=== PATIENT | female | born 1985 | race American Indian/Alaskan Native ===

== ENCOUNTER 2016-11-01 11:55 | Emergency (ER) | payer OTHER ==
[2016-11-01 12:26] VITALS: BP 116/76
[2016-11-01] MEDS ORDERED: NACL 0.9% IR ONE (12:26)
[2016-11-01] MEDS ORDERED: TRIPLE ANTIBIOTIC TP ONE ×2 (12:26→14:38)
--- NOTE | 2016-11-01 12:26 | Emergency Department Report ---
Chief Complaint: Laceration/Recheck/Suture Stated Complaint: FOREHEAD INJURY Time Seen by Provider: 11/01/16 12:22 - HPI History of Present Illness: pt states she tripped and fell going to bed this morning. PT states her head hit her bed frame. PT denies loc, n/v. PT states the injury happened at 0300. PT states she did not think it was that bad but then looked at it when she got up. PT states she believes her TD vaccine is up to date. - ROS Review of Systems: + laceration + bruise to lower lip pt currently denies headache. - Exam Physical Exam: PT is alert and appropriate. gcs 15 2 cm laceration to the R eye brow MSE screening note: Focused history and physical exam performed. Due to findings the following was ordered: meds ED Disposition for MSE Condition: Stable
[2016-11-01] MEDS ORDERED: XYLOCAINE 1%/ EPI 1:100,000 INFILTRATI NR (13:00)
[2016-11-01] MEDS ORDERED: XYLOCAINE 2% INFILTRATI ONE ×2 (14:37→14:38)
--- NOTE | 2016-11-01 15:09 | Emergency Department Report ---
- General Chief Complaint: Wound/Laceration Stated Complaint: FOREHEAD INJURY Time Seen by Provider: 11/01/16 12:22 Source: patient Mode of arrival: Ambulatory Limitations: No Limitations - History of Present Illness Initial Comments: Patient is a 30-year-old female presents due to laceration to the forehead happened early this morning, patient states that she fell while trying to get into bed this morning at 3 AM. Patient states that she tripped and hit her head on the bedpost. Patient denies any loss of consciousness, blurred vision or vomiting. Patient states her tetanus vaccine is up to date. Denies any history of seizures, she denies any dizziness or headache. -: This morning Time: 03:00 Location: face Place: home Patient Tetanus UTD: Yes Context: accidental, fall Associated Symptoms: none Treatments Prior to Arrival: bandage - Related Data Previous Rx's Medication Instructions Recorded Last Taken Type Cephalexin [Keflex] 500 mg PO Q12HR #10 cap 11/01/16 Unknown Rx Ibuprofen [Motrin 800 MG tab] 800 mg PO Q8HR PRN #30 tablet 11/01/16 Unknown Rx Allergies Allergy/AdvReac Type Severity Reaction Status Date / Time No Known Allergies Allergy Verified 11/01/16 12:32 ED Review of Systems ROS: Stated complaint: FOREHEAD INJURY Other details as noted in HPI Comment: All other systems reviewed and negative Constitutional: no symptoms reported. denies: chills, diaphoresis, fever, malaise, weakness Eyes: denies: eye pain, eye discharge, vision change ENT: denies: ear pain, throat pain Respiratory: no symptoms reported Cardiovascular: denies: chest pain Gastrointestinal: denies: abdominal pain, nausea, vomiting Musculoskeletal: denies: back pain, joint swelling, arthralgia Skin: other (facila laceration) Neurological: denies: headache, weakness, numbness, paresthesias, confusion, abnormal gait Psychiatric: denies: anxiety ED Past Medical Hx - Past Medical History Hx Asthma: Yes - Surgical History Past Surgical History?: No - Social History Smoking Status: Never Smoker Substance Use Type: None - Medications Home Medications: Home Medications Medication Instructions Recorded Confirmed Last Taken Type Cephalexin [Keflex] 500 mg PO Q12HR #10 cap 11/01/16 Unknown Rx Ibuprofen [Motrin 800 MG tab] 800 mg PO Q8HR PRN #30 tablet 11/01/16 Unknown Rx ED Physical Exam - General Limitations: No Limitations General appearance: alert, in no apparent distress - Head Head exam: Present: atraumatic, normocephalic, normal inspection - Eye Eye exam: Present: normal appearance, PERRL, EOMI - ENT ENT exam: Present: normal exam, normal orophraynx, mucous membranes moist - Neck Neck exam: Present: normal inspection - Respiratory Respiratory exam: Present: normal lung sounds bilaterally. Absent: respiratory distress, wheezes, rales, rhonchi, stridor - Cardiovascular Cardiovascular Exam: Present: regular rate, normal rhythm, normal heart sounds - GI/Abdominal GI/Abdominal exam: Present: soft, normal bowel sounds. Absent: distended, tenderness, guarding, rebound, rigid - Extremities Exam Extremities exam: Present: normal inspection, full ROM, normal capillary refill. Absent: tenderness - Back Exam Back exam: Present: normal inspection, full ROM. Absent: tenderness - Skin Skin exam: Present: other (4 cm linear laceration to the mid forehead. ) ED Course Vital Signs 11/01/16 12:23 Temperature 98.8 F Pulse Rate 76 Respiratory 17 Rate Blood Pressure 116/76 O2 Sat by Pulse 100 Oximetry - Laceration /Wound Repair Face Wound Location: face Wound Length (cm): 4 Wound's Depth, Shape: linear Wound Explored: no foreign body removed Irrigated w/ Saline (ccs): 60 Betadine Prep?: No Anesthesia: 1% Lidocaine (2%) Volume Anesthetic (ccs): 2 Wound Debrided: minimal Wound Repaired With: sutures Suture Size/Type: 5:0, proline Number of Sutures: 6 Layer Closure?: No Sterile Dressing Applied?: No Progress: neosporin was applied. ED Medical Decision Making - Medical Decision Making Patient was in no acute distress, patient had no neurological focal deficits, motor strength is 5 out of 5, sensory function was intact. Patient had a 4 cm linear laceration on the mid forehead. 6 proline sutures were used to repair the laceration. Neosporin was applied. Patient was told to return to the ER in 7 days for suture removal. Patient was discharged with prescription for Keflex and ibuprofen. - Differential Diagnosis patient laceration, minor head injury, fall Critical care attestation.: If time is entered above; I have spent that time in minutes in the direct care of this critically ill patient, excluding procedure time. ED Disposition Clinical Impression: Facial laceration Qualifiers: Encounter type: initial encounter Qualified Code(s): S01.81XA - Laceration without foreign body of other part of head, initial encounter Fall Qualifiers: Encounter type: initial encounter Qualified Code(s): W19.XXXA - Unspecified fall, initial encounter Disposition: TO HOME OR SELFCARE Is pt being admited?: No Does the pt Need Aspirin: No Condition: Good Instructions: Laceration (ED) Additional Instructions: Clean laceration daily with soap and water and apply Neosporin, return to the ER in 7 days for suture removal. Take ibuprofen 800 mg every 8 hours as needed for pain, take Keflex 500 mg twice a day for 5 days. Return to the ER immediately for any signs of infection like redness, swelling or drainage. Prescriptions: Cephalexin [Keflex] 500 mg PO Q12HR #10 cap Ibuprofen [Motrin 800 MG tab] 800 mg PO Q8HR PRN #30 tablet PRN Reason: Pain Referrals: PRIMARY CARE, [Primary Care Provider] - 3-5 Days Time of Disposition: 15:09
== END 2016-11-01 15:50 | disposition home or self-care (01) ==
LOC: ED 11:55
DX: S01.81XA Laceration without foreign body of other part of head, initial encounter (principal); J45.909 Unspecified asthma, uncomplicated; W01.190A Fall on same level from slipping, tripping and stumbling with subsequent striking against furniture, initial encounter; Y93.89 Activity, other specified; Y99.8 Other external cause status; Y92.89 Other specified places as the place of occurrence of the external cause
CPT/HCPCS: A6250